=== PATIENT | male | born 1995 | race Caucasian/White ===

== ENCOUNTER 2018-01-03 02:15 | Emergency (ER) | payer OTHER ==
[~2018-01-03] VITALS: Ht 166.4 cm; Wt 93.8 kg
[~2018-01-03 02:15] MED LIST: HYDR-3126 PO
[2018-01-03 02:25] VITALS: TEMP 36.6; Ht 166.4 cm; Wt 93.8 kg
[2018-01-03] MEDS ORDERED: SODIUM CHLORIDE 0.9% 1000ML 1,000 ML IV STA ×2 (02:41→03:26)
[2018-01-03] MEDS ORDERED: ONDANSETRON INJ 2 MG/ML 2 ML VIAL IV STA (02:41)
[2018-01-03] MEDS ORDERED: KETOROLAC TROMETHAMINE 30 MG/ML VIAL IV STA (02:41)
[2018-01-03] MEDS ORDERED: SERT-234 PO (02:43)
[2018-01-03] MEDS ORDERED: BUSP5TAB59 PO (02:44)
[2018-01-03] MEDS ORDERED: BUPR75TA20 PO (02:44)
--- NOTE | 2018-01-03 02:47 | EMERGENCY ROOM VISIT NOTE ---
History First contact with patient: 02:29 Chief Complaint: FLANK PAIN Stated Complaint: LWR LEFT BACK PAINS History of Present Illness The patient is a 22 year old male who presents to the Emergency Room with complaints of left flank pain. The patient reports that the pain began approximately 4 hours ago and woke him up from sleep. He has had constant severe pain since then. He describes the pain is sharp and rates it a 7/10. He has been nauseous and has had diarrhea since the pain began. He denies any history of similar symptoms. He has no medical problems. He denies urinary symptoms or fevers. He denies any abdominal pain. He did not take any medication for his pain. He denies any aggravating or alleviating factors. Review of Systems A complete 10 point review of systems was reviewed with the patient with pertinent positives and negatives as per history of present illness. All else were negative. Past Medical/Surgical History Medical Problems: (1) No significant active problems Social History Smoking Status: Never Smoker Marital Status: in relationship Housing Status: lives with family Occupation Status: student Current/Historical Medications Scheduled Bupropion (Wellbutrin), 1 TAB PO DAILY Buspirone Hcl (Buspirone Hcl), 1 TAB PO BID Ondasetron Odt (Zofran Odt), 4 MG SL Q6H Sertraline (Zoloft), 100 MG PO DAILY Scheduled PRN Hydrocodone/Acetaminophen 5MG/325MG ([place] 5MG/325MG), 1-2 TABLET PO Q4H PRN for Pain Physical Exam Vital Signs Date Time Temp Pulse Resp B/P (MAP) Pulse Ox O2 Delivery O2 Flow Rate FiO2 01/03/18 04:46 85 16 144/76 96 01/03/18 03:15 68 16 147/93 98 Room Air 01/03/18 02:25 36.6 62 18 149/98 97 Room Air Physical Exam VITALS: Vitals are noted on the nurse's note and reviewed by myself. Vital signs stable. GENERAL: This is a 22-year-old male, in no acute distress, nondiaphoretic, well- developed well-nourished. SKIN: The skin was without rashes. EYES: Pupils equal round and reactive to light and accommodation. MOUTH: Mucous membranes moist. NECK: Supple without nuchal rigidity. HEART: Regular rate and rhythm without murmurs gallops or rubs. LUNGS: Clear to auscultation bilaterally without wheezes, rales or rhonchi. ABDOMEN: Positive bowel sounds x 4. Soft, mild tenderness in left lower quadrant. No guarding or rebound tenderness. MUSCULOSKELETAL: No tenderness of the lumbar spine. NEURO: Patient was alert and oriented to person place and time. Medical Decision & Procedures ER Provider Diagnostic Interpretation: CT ABDOMEN & PELVIS Without Contrast: Horseshoe kidney. Mild hydronephrosis of the left moiety. However, the ureter is not distended and there is no visualized stone. Possible sequela of recently passed calculus or pyelonephritis or chronic UPJ obstruction. Unremarkable appendix. No bowel obstruction or perforation. Small fatty umbilical hernia. 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 Radiologist: Rob Dial M.D. Laboratory Results 01/03/18 02:53 Red Blood Count 4.87, Mean Corpuscular Volume 88.9, Mean Corpuscular Hemoglobin 31.8, Mean Corpuscular Hemoglobin Concent 35.8, Mean Platelet Volume 9.3, Neutrophils (%) (Auto) 88.2, Lymphocytes (%) (Auto) 5.8, Monocytes (%) (Auto) 5.6, Eosinophils (%) (Auto) 0.0, Basophils (%) (Auto) 0.1, Neutrophils # (Auto) 19.03, Lymphocytes # (Auto) 1.25, Monocytes # (Auto) 1.22, Eosinophils # (Auto) 0.01, Basophils # (Auto) 0.02 01/03/18 02:53 Test 01/03/18 02:36 01/03/18 02:53 Urine Color YELLOW Urine Appearance CLEAR (CLEAR) Urine pH 7.0 (4.5-7.5) Urine Specific Gilbert 1.024 (1.000-1.030) Urine Protein NEG (NEG) Urine Glucose (UA) NEG (NEG) Urine Ketones NEG (NEG) Urine Occult Blood 3+ (NEG) Urine Nitrite NEG (NEG) Urine Bilirubin NEG (NEG) Urine Urobilinogen NEG (NEG) Urine Leukocyte Esterase NEG (NEG) Urine WBC (Auto) 1-5 /hpf (0-5) Urine RBC (Auto) >30 /hpf (0-4) Urine Hyaline Casts (Auto) 0 /lpf (0-5) Urine Epithelial Cells (Auto) >30 /lpf (0-5) Urine Bacteria (Auto) NEG (NEG) Urine Renal Epithelial Cells /lpf (0-5) Urine Mucus PRESENT (NONE PRSENT) White Blood Count 21.60 K/uL (4.8-10.8) Red Blood Count 4.87 M/uL (4.7-6.1) Hemoglobin 15.5 g/dL (14.0-18.0) Hematocrit 43.3 % (42-52) Mean Corpuscular Volume 88.9 fL (80-100) Mean Corpuscular Hemoglobin 31.8 pg (25-34) Mean Corpuscular Hemoglobin Concent 35.8 g/dl (32-36) Platelet Count 292 K/uL (130-400) Mean Platelet Volume 9.3 fL (7.4-10.4) Neutrophils (%) (Auto) 88.2 % Lymphocytes (%) (Auto) 5.8 % Monocytes (%) (Auto) 5.6 % Eosinophils (%) (Auto) 0.0 % Basophils (%) (Auto) 0.1 % Neutrophils # (Auto) 19.03 K/uL (1.4-6.5) Lymphocytes # (Auto) 1.25 K/uL (1.2-3.4) Monocytes # (Auto) 1.22 K/uL (0.11-0.59) Eosinophils # (Auto) 0.01 K/uL (0-0.5) Basophils # (Auto) 0.02 K/uL (0-0.2) RDW Standard Deviation 39.0 fL (36.4-46.3) RDW Coefficient of Variation 12.1 % (11.5-14.5) Immature Granulocyte % (Auto) 0.3 % Immature Granulocyte # (Auto) 0.07 K/uL (0.00-0.02) Anion Gap 6.0 mmol/L (3-11) Est Creatinine Clear Calc Drug Dose 105.2 ml/min Estimated GFR () 101.3 Estimated GFR (Non- 87.4 BUN/Creatinine Ratio 10.5 (10-20) Calcium Level 9.0 mg/dl (8.5-10.1) Total Bilirubin 0.3 mg/dl (0.2-1) Aspartate Amino Transf (AST/SGOT) 17 U/L (15-37) Alanine Aminotransferase (ALT/SGPT) 24 U/L (12-78) Alkaline Phosphatase 101 U/L (45-117) Total Protein 7.8 gm/dl (6.4-8.2) Albumin 4.3 gm/dl (3.4-5.0) Globulin 3.5 gm/dl (2.5-4.0) Albumin/Globulin Ratio 1.2 (0.9-2) Medications Administered Medications (Trade) Dose Ordered Sig/Juan Route Start Time Stop Time Status Last Admin Dose Admin Sodium Chloride 1,000 ml @ 999 mls/hr Q1H1M STAT IV 01/03/18 02:41 01/03/18 03:41 DC 01/03/18 02:52 999 MLS/HR Ketorolac Tromethamine (Toradol Inj) 30 mg NOW STAT IV 01/03/18 02:41 01/03/18 02:42 DC 01/03/18 02:53 30 MG Ondansetron HCl (Zofran Inj) 4 mg NOW STAT IV 01/03/18 02:41 01/03/18 02:42 DC 01/03/18 02:52 4 MG Sodium Chloride 1,000 ml @ 999 mls/hr Q1H1M STAT IV 01/03/18 03:26 01/03/18 04:26 DC 01/03/18 03:48 999 MLS/HR Ondansetron HCl (ZOFRAN ODT 4MG Home Pack) 1 homepack UD ONCE PO 01/03/18 04:15 01/03/18 04:16 DC 01/03/18 04:34 1 HOMEPACK Acetaminophen/ Hydrocodone Bitart ([place] 5/325mg Home Pack) 1 homepack UD ONCE PO 01/03/18 04:15 01/03/18 04:16 DC 01/03/18 04:33 1 HOMEPACK Medical Decision Differential diagnosis includes kidney stone, pyelonephritis, gastroenteritis, musculoskeletal pain, among others. The patient is a 22-year-old male who presents today complaining of left flank pain. Patient had a sudden onset of pain 4 hours prior to arrival. A CT scan was performed and showed mild left hydronephrosis consistent with possible recently passed kidney stone. Urinalysis is not suggestive of infection. Creatinine within normal limits. Labs revealed a significant leukocytosis of 21 ,000, although I feel this is likely secondary to a stress reaction rather than infection as patient has no fever or obvious source of infection. Symptoms do seem consistent with a passed stone. He was hydrated with 2 L of fluids and instructed to have this rechecked by his primary care provider. He was treated with Toradol and Zofran and felt significantly better. He was advised to return here if he develops worsening pain/vomiting, fevers or other new/ concerning symptoms. Based on the patient's presentation and work up, I feel the patient is stable for outpatient treatment. The patient was educated to return to the emergency department for any worsening of their current condition or new/concerning symptoms. He will follow up with his PCP. [facility] Drug Monitoring Program Search Results: patient reviewed within database, no issues identified Medication Reconcilliation Current Medication List: was personally reviewed by me Blood Pressure Screening Patient's blood pressure: Elevated blood pressure Blood pressure disposition: Elevated BP felt to be situational Impression Primary Impression: Left flank pain Departure Information Dispostion Home / Self-Care Condition GOOD Prescriptions Hydrocodone/Acetaminophen 5MG/325MG ([place] 5MG/325MG) Tab 1-2 TABLET PO Q4H Y for Pain, #12 TAB For Initial Treatment Prov: Agnes Pinedo PA-C 01/03/18 Ondasetron Odt (ZOFRAN ODT) 4 Mg Tab 4 MG SL Q6H for Nausea, #12 TAB Prov: Agnes Pinedo PA-C 01/03/18 Referrals Sharmila Churchill DO (PCP) Patient Instructions [facility] Additional Instructions You have been treated in the Emergency Department for your Abdominal/back Pain. Laboratory results and imaging studies have ruled out any emergent causes for your abdominal pain which would warrant admission or surgery. Your CT showed some swelling in the kidney which is most likely due to a recently passed kidney stone. Your white blood cell count was fairly elevated. You should have this rechecked by your primary care provider this week. You have been prescribed [place] to be used for pain control. This is a narcotic medication. You cannot drive or consume alcohol while on this medicine. This medicine should only be used for pain that cannot be controlled with over-the- counter pain medicines. You have been prescribed Zofran to be used for any nausea or vomiting. Take as prescribed. For pain control, you can use the following [id number] medicines (if >12 yo): - Regular strength (325mg/tab) Tylenol (acetaminophen) 2 tabs every 4-6 hours as needed. Do not exceed 12 tablets in a 24 hour period. Avoid taking more than 4 grams (4000 mg) of Tylenol per day. This includes any other sources of acetaminophen you may take on a regular basis. - Regular strength (200 mg/tab) Advil (ibuprofen) 1-2 tabs every 4-6 hours as needed. Do not exceed a dose of 3200 mg per day. Drink plenty of water and stay well hydrated. As with any trip to the Emergency Department, you should follow-up with your Primary Care Provider from today's visit. Return to the emergency department if your symptoms persist despite treatment plan outlined above or if the following symptoms occur: fevers, chills, worsening nausea/vomiting, worsening abdominal pain, or any other new/ concerning symptoms.
[2018-01-03 03:06] LABS: BASO % 0.1 %; BASO ABS # 0.02 K/uL (0-0.2); EOS ABS # 0.01 K/uL (0-0.5); HEMATOCRIT 43.3 % (42-52); HEMOGLOBIN 15.5 g/dL (14.0-18.0); IG# 0.07 K/uL (0.00-0.02); LYMPH % 5.8 %; LYMPH ABS # 1.25 K/uL (1.2-3.4); MEAN CELL VOLUME 88.9 fL (80-100); MEAN CORPUSCULAR HEMOGLOBIN 31.8 pg (25-34); MEAN CORPUSCULAR HGB CONC 35.8 g/dl (32-36); MEAN PLATELET VOLUME 9.3 fL (7.4-10.4); MONO % 5.6 %; MONO ABS # 1.22 K/uL (0.11-0.59); NEUT % 88.2 %; NEUT ABS # 19.03 K/uL (1.4-6.5); PLATELET COUNT 292 K/uL (130-400); RED CELL DISTRIBUTION WIDTH CV 12.1 % (11.5-14.5)
[2018-01-03 03:27] LABS: ALBUMIN 4.3 gm/dl (3.4-5.0); CREATININE 1.19 mg/dl (0.60-1.40); POTASSIUM 4.1 mmol/L (3.5-5.1)
[2018-01-03 03:29] LABS: TOTAL PROTEIN 7.8 gm/dl (6.4-8.2)
[2018-01-03] MEDS ORDERED: ONDA4TAB10 SL (04:08)
[2018-01-03] MEDS ORDERED: HYDR-5688 PO (04:08)
[2018-01-03] MEDS ORDERED: NORCO 5/325MG HOME PACK PO ONE (04:15)
[2018-01-03] MEDS ORDERED: ONDANSETRON HOME PACK 4MG OD TAB PO ONE (04:15)
[2018-01-03 04:46] VITALS: BP 144/76; PULSE 85; O2SAT 96
--- NOTE | 2018-01-03 07:00 | DIAGNOSTIC IMAGING REPORT ---
ABD/PELVIS WITHOUT FOR STONE CLINICAL HISTORY: 22 years-old Male presenting with left flank pain, blood in the urine. TECHNIQUE: Multidetector CT of the abdomen and pelvis was performed without the use of intravenous contrast. IV contrast: None. A dose lowering technique was used consistent with the principles of ALARA (as low as reasonably achievable). COMPARISON: CT from 08/11/2016. CT DOSE (mGy.cm): The estimated cumulative dose is 1201.04 mGy.cm. FINDINGS: Investment Banker topogram: Unremarkable. Lung bases: Lungs and pleural spaces clear. Normal heart size. No pericardial or pleural effusion. Liver: Normal morphology. Normal density. Biliary: No gross biliary ductal dilatation allowing for noncontrast technique. Normal gallbladder. Pancreas: Normal noncontrast appearance. Spleen: Normal noncontrast appearance. Adrenal glands: Normal noncontrast appearance. Kidneys and ureters: Redemonstration of the horseshoe kidney. Chronic moderate pelvocaliectasis of the left moiety, which is similar though slightly increased from the prior exam. No nephrolithiasis. Minimal stranding noted in the region of the left moiety renal sinus. The left ureter is nondistended. No ureteral calculus. The right ureter is also normal. No distention of the right moiety. Bladder: Incompletely evaluated secondary to underdistention. Pelvic organs: Prostate and seminal vesicles normal. Retracted right testis. On the prior exam, the right testis was located normally in the scrotum beyond the [id number]. Bowel: Normal appendix. No bowel obstruction. Peritoneal cavity: No free fluid or intraperitoneal gas. Lymph nodes: No gross lymphadenopathy allowing for noncontrast technique. Vasculature: Normal noncontrast appearance. Abdominal wall: Small fat-containing umbilical hernia. Musculoskeletal: Normal. IMPRESSION: 1. Stable to slight interval increase in dilatation of the left moiety of the horseshoe kidney. No convincing evidence of hydronephrosis. No left hydroureter. Trace fat stranding at the left moiety renal sinus. This could suggest recently passed calculus though no nephrolithiasis visualized on either the prior or the current exam. Correlate with urinalysis to exclude infection. Alternatively, this could represent congenital ureteropelvic junction obstruction. 2. No other evidence of acute intra-abdominal pathology allowing for noncontrast technique. Electronically signed by: Rubin Collazo M.D. 01/03/2018 6:59 AM Dictated Date/Time: 01/03/2018 6:52 AM
== END 2018-01-03 04:47 | disposition home or self-care (01) ==
LOC: C.EDB 02:17
DX: R10.9 Unspecified abdominal pain (principal); Z79.899 Other long term (current) drug therapy